=== PATIENT | female | born 2000 | race Caucasian/White ===

== ENCOUNTER 2025-02-07 05:39 | Day surgery (SDC) | payer MEDICAID, SELFPAY ==
[2025-02-05 12:52] VITALS: BMI 36.9
[2025-02-07] VITALS (10 sets, daily range): BP systolic 130–164; BP diastolic 79–110; PULSE 63–118; RESP 16–22; TEMP 36.1–36.4; O2SAT 93–96
[2025-02-07 06:54] LABS: Urine Pregnancy, HCG Qual. Negative (Negative)
--- NOTE | 2025-02-07 07:08 | EXP.ANES.CKL ---
[facility] Disclaimer: The information contained in this section may have been updated after the patient was seen, as this information can be updated by other users. Medical History Blindness of both eyes Brain tumor Surgical History History of brain shunt History of tonsillectomy and adenoidectomy History of brain surgery Family History Mother Marfan syndrome Social History Smoking Status: Never smoker alcohol intake: never substance use type: denies use current occupational status: disabled Travel in the last 8 weeks?: None [facility] Anesthesia Checklist Patient Identification Patient Identification: Arm Band and Family Structural Data Admitted From: Home Planned Operative Procedure/s: Full mouth extraction. Consent for Planned Operative Procedure(s) Verified: Yes Verified Documents: Surgical Consent and History and Physical NPO Status Verified Time NPO: 00:00 Additional verifications Patient : No Anesthesia Reactions: No Hx Blood Transfusions: No Blood Transfusion Reaction: No Cephalosporin Allergy: No Previous Colonoscopy: No Airway Assessment Mallampati Score:: Class III C-Spine Mobility Assessed: Yes TMJ Mobility Assessed: Yes Dentition: Poor Dentition Neurological Assessment Level of Consciousness: Awake, Alert, Appropriate and Follows Commands Hx Seizures: No Numbness or tingling in extremities: No Anesthesia Plan ASA Class: III Anesthesia Type: General Preoperative Comments Pre-Operative Comments: Tumor from brain. Shunt revision March 2023.
[2025-02-07 07:35] LABS: Alanine Aminotransferase 37 U/L (12-78); Albumin Level 4.7 g/dl (3.5-5.0); Alkaline Phosphatase 107 U/L (38-126); Anion Gap 10.1 mEq/L (5-15); Aspartate Amino Transferase 28 U/L (14-36); Bilirubin,Total 0.9 mg/dl (0.2-1.3); Blood Urea Nitrogen 12 mg/dl (7-17); Calcium 9.9 mg/dl (8.4-10.2); Carbon Dioxide 27 mmol/L (22.0-30.0); Chloride 105 mmol/L (98-107); Creatinine Clearance Estimated 223 mL/min (50-200); Estimated Glomerular Filt Rate 149 ml/min (>60); GFR (African American) 180 ML/MIN (>60); Globulin 2.4 g/dL (1.3-3.2); Glucose 85 mg/dl (74-100); Potassium 4.1 mmoL/L (3.5-5.1); Sodium 138 mmol/L (136-145); Total Protein,Serum 7.1 g/dl (6.3-8.2)
[2025-02-07 07:44] LABS: Basophils # 0.1 K/mm3 (0-0.2); Basophils % 0.6 % (0.1-2.0); Eosinophils # 0.1 Kmm3 (0.0-0.4); Eosinophils % 0.6 % (0.1-12.0); Hematocrit 41.6 % (37.0-47.0); Hemoglobin 13.6 g/dL (12.2-16.2); Immature Granulocytes # 0.02 10^3uL; Immature Granulocytes % 0.2 %; Lymphocytes # 2.5 K/mm3 (0.7-4.5); Lymphocytes % 28.6 % (10-50); Mean Corpuscular HGB Conc 32.7 g/dL (31.8-35.4); Mean Corpuscular Hemoglobin 26.9 pg (27.0-31.2); Mean Corpuscular Volume 82.2 fl (81-99); Mean Platelet Volume 9.6 fl (7.4-10.4); Monocytes # 0.5 K/mm3 (0.1-1.0); Monocytes % 5.4 % (1.7-9.3); Neutrophils # 5.7 K/mm3 (1.8-7.8); Neutrophils % 64.6 % (37.0-80.0); Nucleated Red Blood Cells # 0 10^3/uL; Nucleated Red Blood Cells % 0 %; Platelet Count 292 K/mm3 (142-424); Red Blood Count 5.06 M/mm3 (4.20-5.40); Red Cell Distribution Width 14.3 % (11.5-17.5); Red Cell Distribution Width-SD 42.3 fL; White Blood Count 8.8 K/mm3 (4.8-10.8)
[2025-02-07] MEDS: LIDOCAINE 1% W/EPI 1:100,000 20ML VIAL 20 ML (08:25)
[2025-02-07] MEDS: ACETAMINOPHEN 500MG TAB 1000 MG PO (10:50)
--- NOTE | 2025-02-07 13:01 | EXP.ANES.II ---
[facility] Anesthesia Record Part II Anesthesia Record Part II Discharge Time: 10:58 Destination: Surgical Day Care (OP Surgery) PACU nurse assessment reviewed?: Yes Patient Condition:: Good Anesthesia Complications:: None Swallowing reflex intact?: Yes Airway Patency: Patent Cyanosis?: No Blood Pressure: 152/103 SaO2: 95 Respiratory Rate: 16 Pulse Rate: 108 Temperature: 97 F Mental Status: Alert & Oriented Pain level:: 6 Nausea and/or vomitting:: None Intake, IV Amount: 0 Hydration: Adequate
--- NOTE | 2025-02-07 15:24 | EXP.ANES.I ---
[facility] Anesthesia Record Part I Anesthesia Record I Intake, IV Amount: 750 Hydration: Adequate Estimated blood loss (mL): 75 Urine output (mL): 0 Blood Products used (#): none Blood Pressure: 133/81 SaO2: 94 Pulse Rate: 115 Airway Patency: Patent Respiratory Rate: 22 Temperature: 97 F Patient is:: Drowsy and Stable Stable to PACU at:: 10:28
--- NOTE | 2025-02-08 11:09 | P.PCN_ITS ---
Operative Note Date of procedure: 02/08/25 Date of : 89 Pre-op Diagnosis:: 32 Non-Restorable teeth in need of extraction Post-op diagnosis:: same Procedure performed:: All 32 teeth removed surgically today and Frenulectomy also done x2 Surgeon:: Jonna Campos DMD Patient Registration Supervisor(s):: Sarika El [employer] OPERATOR:: Other (Bird Casey CRNA) Anesthesia: GETA Estimated blood loss (mL): 70 Operative findings:: This is 24 year old was seen in the [place] operating room today on 02-07-25 for surgical removal of all her thirty two teeth which are severely decayed and non restorable. She and her mother are requesting full mouth extractions, then upper and lower dentures after healing. The patients mother who she lives with transported her to the hospital today and will be taking care of her after her extractions. 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 She also has problems with regulating her body temperature due to the tumors and damage to her hypothalamus. Her mother states that she has never had seizures due to this but suffered many other health issues. A pre-surgery history and physical was done by her neurologist and her primary care physician for [facility]. Pre-operative diagnosis: acute situational anxiety to the dental setting and unstable medical conditions (ASA III) requiring general anesthesia in the O.R. for removal of severely decayed non-restorable teeth. Postoperative Diagnosis: Same. Operation preformed: Full mouth surgical removal of 32 teeth with aveleoplasty to smooth the bone and frenulectomy of the maxillary anterior frenulum. Surgeon: Jonna Campos DMD Anesthesia: General -Bird Casey CRNA Patient Registration Supervisor: Sarika El. Procedure: The patient was transported to the [facility] per her mother. In the holding room an IV was began. The patient was transported to the operating room where she was nasotracheal intubated. Anesthesia was induced and maintained throughout the procedure without complications; See anesthesia records. The patient was draped in the usual manner, Full mouth digital X-rays were then taken. The throat was suctioned clear and one moist throat pack was placed in the posterior oral pharynx. 200 mg lidocaine with epi. O.R. vial drawn up and injected in all four quadrants. Buccal flaps were elevated in each quadrant and a surgical handpiece with a #6 surgical bur was used to remove buccal, mesial and distal bone as needed in order to remove all teeth and teeth roots of #1 thru #32. A total of 32 teeth were surgically removed today. Then alveleoplasty bone smoothing was completed using ronguers , surgical burs, and bone file. All four quadrants were irrigated well then flaps were closed with 3- 0 chromic gut suture with running mattress style suture. Then, a maxillary and mandibular anterior frenulectomy was done using surgical scissors and #15 blade. This was done to relieve the frenulum so this patient will be able to wear dentures once she heals. Estimated blood loss was 70 ml. The patient tolerated all surgical procedures well and there was no surgical complications. The throat was irrigated and suctioned free of debris. The throat pack was removed. The patient was excubated without complications and taken to the post operative recovery room in satisfactory condition. Operative note:: This is 24 year old was seen in the [place] operating room today on 02-07-25 for surgical removal of all her thirty two teeth which are severely decayed and non restorable. She and her mother are requesting full mouth extractions, then upper and lower dentures after healing. The patients mother who she lives with transported her to the hospital today and will be taking care of her after her extractions. 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 She also has problems with regulating her body temperature due to the tumors and damage to her hypothalamus. Her mother states that she has never had seizures due to this but suffered many other health issues. A pre-surgery history and physical was done by her neurologist and her primary care physician for [facility]. Pre-operative diagnosis: acute situational anxiety to the dental setting and unstable medical conditions (ASA III) requiring general anesthesia in the O.R. for removal of severely decayed non-restorable teeth. Postoperative Diagnosis: Same. Operation preformed: Full mouth surgical removal of 32 teeth with aveleoplasty to smooth the bone and frenulectomy of the maxillary anterior frenulum. Surgeon: Jonna Campos DMD Anesthesia: General -Bird Casey CRNA Patient Registration Supervisor: Sarika El. Procedure: The patient was transported to the [facility] per her mother. In the holding room an IV was began. The patient was transported to the operating room where she was nasotracheal intubated. Anesthesia was induced and maintained throughout the procedure without complications; See anesthesia records. The patient was draped in the usual manner, Full mouth digital X-rays were then taken. The throat was suctioned clear and one moist throat pack was placed in the posterior oral pharynx. 200 mg lidocaine with epi. O.R. vial drawn up and injected in all four quadrants. Buccal flaps were elevated in each quadrant and a surgical handpiece with a #6 surgical bur was used to remove buccal, mesial and distal bone as needed in order to remove all teeth and teeth roots of #1 thru #32. A total of 32 teeth were surgically removed today. Then alveleoplasty bone smoothing was completed using ronguers , surgical burs, and bone file. All four quadrants were irrigated well then flaps were closed with 3- 0 chromic gut suture with running mattress style suture. Then, a maxillary and mandibular anterior frenulectomy was done using surgical scissors and #15 blade. This was done to relieve the frenulum so this patient will be able to wear dentures once she heals. Estimated blood loss was 70 ml. The patient tolerated all surgical procedures well and there was no surgical complications. The throat was irrigated and suctioned free of debris. The throat pack was removed. The patient was excubated without complications and taken to the post operative recovery room in satisfactory condition. Disposition: same day Specimens:: 32 teeth Complications:: none
[2025-02-08 14:12] LABS: Sjogren's Anti-SS-A <0.2 AI (0.0-0.9); Sjogren's Anti-SS-B <0.2 AI (0.0-0.9)
== END 2025-02-07 11:30 | disposition home or self-care (01) ==
PROVIDERS: Internal Medicine Adolescent Medicine; Visit Provider Dentist General Practice
PROC: (CPT 41899; principal; 2025-02-07 07:30)
DX: K02.9 Dental caries, unspecified (principal); G91.9 Hydrocephalus, unspecified; F43.0 Acute stress reaction
CPT/HCPCS: 41899; 80053; 81025; 85025; 86235; J3490; J1100; J2250; J2405; J3010